=== PATIENT | female | born 2000 | race Caucasian/White ===

== ENCOUNTER 2019-06-15 19:19 | Emergency (ER) | payer MEDICAID ==
[~2019-06-15] VITALS: Ht 160 cm; Wt 54.5 kg
[2019-06-15 19:30] VITALS: Ht 160 cm; Wt 54.5 kg
[2019-06-15] MEDS ORDERED: EPI PEN (19:31)
[2019-06-15] MEDS ORDERED: EPIPEN 2-P0.3 MG/0.3 IM (21:20)
[2019-06-15 21:41] VITALS: BP 136/72
== END 2019-06-15 21:45 | disposition home or self-care (01) ==
LOC: D.ER 19:19
DX: T63.441A Toxic effect of venom of bees, accidental (unintentional), initial encounter (principal); Y92.89 Other specified places as the place of occurrence of the external cause